=== PATIENT | female | born 1990 | race Caucasian/White ===

== ENCOUNTER → 2024-12-05 | Outpatient (CLI) | payer BC ==
--- NOTE | 2024-12-06 05:49 | US ---
EXAMINATION TYPE: US pelvic complete DATE OF EXAM: 12/05/2024 COMPARISON: NONE CLINICAL INDICATION: Female, 34 years old with history of N94.10 Unspecified dyspareunia; TECHNIQUE: Transabdominal (TA). Transabdominal grayscale sonographic images of the pelvis were acquired. : Doppler imaging: Not performed. FINDINGS: EXAM MEASUREMENTS: Uterus: 8.6 x 3.6 x 4.8 cm Endometrial Stripe: 0.25 cm Right Ovary: 2.9 x 1.6 x 2.7 cm Left Ovary: 2.9 x 1.5 x 2.4 cm 1. Uterus: Anteverted wnl 2. Endometrium: wnl 3. Right Ovary: wnl 4. Left Ovary: wnl 5. Bilateral Adnexa: wnl 6. Posterior cul-de-sac: wnl IMPRESSION: Unremarkable transabdominal pelvic ultrasound study. [facility], , 12/06/2024 5:46 AM
== END | disposition home or self-care (01) ==
LOC: RADUSWWP 15:51
PROVIDERS: ATTEND Family Medicine
DX: N94.10 Unspecified dyspareunia (principal)
CPT/HCPCS: 76856